=== PATIENT | male | born 1950 | race Caucasian/White ===

== ENCOUNTER 2016-07-19 09:33 | Day surgery (SDC) | payer MEDICARE ==
[2016-07-05 10:01] VITALS: BMI 32.7
[~2016-07-19 09:33] MED LIST: LACTATED RINGERS 1,000 ML IV SCH
[2016-07-19 10:13] VITALS: RESP 16; TEMP 97.9
[2016-07-19] MEDS ORDERED: LIDOCAINE 1% 20 ML VIAL (10MG/ML) FOR IV START INTRADERMA ONE (10:26)
[2016-07-19] MEDS ORDERED: PROPOFOL 10 MG/ML 20 ML VIAL IV ONE (11:04)
[2016-07-19] MEDS ORDERED: LIDOCAINE 1% INJ 10MG/ML (20 ML MDV) ONE (11:04)
--- NOTE | 2016-07-19 11:41 | P.PCN ---
Date of Procedure: 07/19/16 Procedure(s) Performed: Procedure: Colonoscopy and polypectomy. Preoperative diagnosis: Screening for neoplasia, patient has history of polyps. Postoperative diagnosis: 1. Sigmoid diverticulosis with no evidence of acute diverticulitis or strictures. 2. Multiple polyps snared, but no large polyps or cancer. Preparation: HalfLytely prep. Sedation: Was provided by anesthesia. Brief clinical history: The patient is a 65-year-old male who is scheduled for this evaluation because of history of polyps. His last exam was in May 2009. The patient has no abdominal complaints, bleeding or anemia. Procedure: With the patient on his left lateral decubitus position and after informed consent and adequate sedation, the perianal area was inspected and it did not show any fissures or fistulas. There were no masses felt on digital rectal examination. The Olympus CFQ 160L video colonoscope was then inserted in the rectum in the usual fashion and advanced to the cecum. There were multiple diverticular orifices seen scattered in the sigmoid and there were multiple small and medium-sized polyps that were snared in the sigmoid and around the hepatic flexure with no large polyps or cancer. I retroflexed the endoscope in the rectum before the endoscope was withdrawn. The patient tolerated the procedure well. Plan: The patient was reassured. Discussed dietary measures, and I recommended a repeat exam in 3 years. He will follow up with you as planned.
[2016-07-19 12:04] VITALS: BP 113/74; PULSE 70
== END 2016-07-19 12:13 | disposition home or self-care (01) ==
LOC: ORWHC2ENDO 09:33
DX: Z12.11 Encounter for screening for malignant neoplasm of colon (principal); D12.5 Benign neoplasm of sigmoid colon; Z86.010 Personal history of colon polyps; I10 Essential (primary) hypertension; E78.5 Hyperlipidemia, unspecified; G40.909 Epilepsy, unspecified, not intractable, without status epilepticus; K57.30 Diverticulosis of large intestine without perforation or abscess without bleeding; Z88.0 Allergy status to penicillin; Z88.8 Allergy status to other drugs, medicaments and biological substances; Z79.899 Other long term (current) drug therapy; Z86.718 Personal history of other venous thrombosis and embolism
CPT/HCPCS: 88305; 45385; J2001; J2704; 99153

== ENCOUNTER 2020-09-05 09:34 | Day surgery (SDC) | payer MEDICARE ==
[2020-08-31 15:35] VITALS: BMI 35.3
[2020-09-05 10:11] VITALS: RESP 16; TEMP 98.4
[2020-09-05] MEDS ORDERED: LIDOCAINE 1% (10MG/ML) FOR IV START INTRADERMA ONE (10:27)
[2020-09-05] MEDS ORDERED: PROPOFOL 10 MG/ML 20 ML VIAL IV ONE (10:42)
--- NOTE | 2020-09-05 11:35 | P.PCN ---
Date of Procedure: 09/05/20 Description of Procedure: BRIEF HISTORY: Patient is a 70-year-old male presented for outpatient colonoscopy for tubular adenoma/history of colon polyps. Last colonoscopy 5 years ago. Prior polypectomies on colonoscopy. Denies any change in bowel habits. No family history of colon cancer. PROCEDURE PERFORMED: Colonoscopy with polypectomy. PREOPERATIVE DIAGNOSIS: Tubular adenoma, personal history of colon polyps, last colonoscopy 5 years ago. ESTIMATED BLOOD LOSS: Minimal. IV sedation per Anesthesia. PROCEDURE: After informed consent was obtained, the patient, was brought into the endoscopy unit. IV sedation was administered by Anesthesia under continuous monitoring. Digital rectal examination was normal. Initially the Olympus CF-190 flexible video colonoscope was then inserted in the rectum, gradually advanced into the cecum without any difficulty. Careful examination was performed as the scope was gradually being withdrawn. Ileocecal valve and the appendiceal orifice were visualized and appeared normal. Prep was excellent. Mucosa of the cecum, ascending colon, transverse colon, descending colon, sigmoid colon, and rectum appeared normal. 6 sessile polyps measuring 3 mm in size up to 7 mm in size removed with cold snare polypectomy from the transverse colon, ascending colon, cecum, hepatic flexure, splenic flexure and descending colon. A few scattered diverticula noted in the left colon. Retroflexion was performed in the rectum and no lesions were seen. The patient tolerated the procedure well. IMPRESSION: 6 polyps removed with cold snare polypectomy from the cecum, ascending colon, transverse colon, hepatic flexure, splenic flexure and descending colon. Mild left colonic diverticulosis RECOMMENDATIONS: Findings of this examination were discussed with the patient and his family. Okay to resume diet. A prescription medications. Await pathology from polypectomy. Recommend repeat colonoscopy in 3 years for colon polyps pending pathology from polypectomy.
[2020-09-05 11:55] VITALS: BP 105/62; PULSE 76
== END 2020-09-05 12:18 | disposition home or self-care (01) ==
LOC: ORWHC2ENDO 09:34
PROVIDERS: ATTEND Internal Medicine
DX: K63.5 Polyp of colon (principal); D12.2 Benign neoplasm of ascending colon; D12.0 Benign neoplasm of cecum; D12.4 Benign neoplasm of descending colon; D12.3 Benign neoplasm of transverse colon; K57.30 Diverticulosis of large intestine without perforation or abscess without bleeding; I10 Essential (primary) hypertension; E78.5 Hyperlipidemia, unspecified; R56.9 Unspecified convulsions; Z86.010 Personal history of colon polyps; Z88.0 Allergy status to penicillin; Z88.8 Allergy status to other drugs, medicaments and biological substances; Z79.899 Other long term (current) drug therapy; Z90.49 Acquired absence of other specified parts of digestive tract; Z98.41 Cataract extraction status, right eye; Z98.42 Cataract extraction status, left eye; Z86.718 Personal history of other venous thrombosis and embolism
CPT/HCPCS: 88305; 45385; J2704

== ENCOUNTER 2023-12-24 09:54 | Day surgery (SDC) | payer MEDICARE ==
[2023-12-24] MEDS: IV FLUID CONTINUATION 1,000 ML IV ONE ×2 (10:40→12:27)
[2023-12-24] MEDS: LACTATED RINGERS 1,000 ML IV SCH (10:54)
[2023-12-24 10:59] VITALS: TEMP 97
[2023-12-24] MEDS ORDERED: PROPOFOL 10 MG/ML 20 ML VIAL IV ONE (12:28)
--- NOTE | 2023-12-24 13:02 | P.PCN ---
Date of Procedure: 12/24/23 Procedure(s) Performed: BRIEF HISTORY: Patient is a 73-year-old pleasant white male scheduled for an elective colonoscopy as a part of management by history of colon polyps r PROCEDURE PERFORMED: Colonoscopy with snare polypectomy, Endo Clip placement and tattooing with Lindsey ink. PREOPERATIVE DIAGNOSIS: History of colon polyps. IV sedation per Anesthesia. PROCEDURE: After informed consent was obtained, the patient, was brought into the endoscopy unit. IV sedation was administered by Anesthesia under continuous monitoring. Digital rectal examination was normal. Initially the Olympus CF-160 flexible video colonoscope was then inserted in the rectum, gradually advanced into the cecum without any difficulty. Careful examination was performed as the scope was gradually being withdrawn. Ileocecal valve and the appendiceal orifice were visualized and appeared normal. Prep was excellent. Mucosa of the cecum, ascending colon, appeared normal. The hepatic flexure there was a 4 cm broad- based polyp that was removed by piecemeal snare polypectomy and almost complete polypectomy of accomplished. Following the polypectomy 2 endoclips were placed to prevent post polypectomy bleed. Tattooing was performed with Lindsey ink. Transverse colon, descending colon, sigmoid colon, and rectum appeared normal. Retroflexion was performed in the rectum and no lesions were seen. Scattered sigmoid diverticulosis. The patient tolerated the procedure well. IMPRESSION: 4 cm broad-based hepatic flexure polyp status post piecemeal snare polypectomy followed by Endo Clip placement and tattooing with Lindsey ink and almost complete polypectomy accomplished Scattered sigmoid diverticulosis RECOMMENDATIONS: Findings of this examination were discussed with the patient as well as his family. He was advised to have the biopsy results. He will be seen in the office in 2 weeks. If the biopsy reveals adenoma we will plan a repeat colonoscopy in 3 months to ensure complete polypectomy..
[2023-12-24 13:52] VITALS: BP 102/65; PULSE 76; RESP 18
== END 2023-12-24 13:56 | disposition home or self-care (01) ==
LOC: ORWHC2ENDO 09:54
PROVIDERS: ATTEND Internal Medicine Gastroenterology
DX: Z12.11 Encounter for screening for malignant neoplasm of colon (principal); K57.30 Diverticulosis of large intestine without perforation or abscess without bleeding; D12.3 Benign neoplasm of transverse colon; I10 Essential (primary) hypertension; E78.5 Hyperlipidemia, unspecified; G40.909 Epilepsy, unspecified, not intractable, without status epilepticus; Z86.010 Personal history of colon polyps; Z79.899 Other long term (current) drug therapy; Z88.0 Allergy status to penicillin; Z88.1 Allergy status to other antibiotic agents; Z88.8 Allergy status to other drugs, medicaments and biological substances; Z87.442 Personal history of urinary calculi
CPT/HCPCS: 88305; 45385; 45381; J2704

== ENCOUNTER → 2024-06-23 | Day surgery (SDC) | payer MEDICARE ==
[~2024-06-23] MED LIST changes: +LIDOCAINE 1% (10MG/ML) FOR IV START INTRADERMA PRN; +LIDOCAINE 1% INJ 10MG/ML (20 ML MDV) ONE; +PROPOFOL 10 MG/ML 20 ML VIAL IV ONE
[2024-06-23] MEDS: SODIUM CHLORIDE 0.9% 1,000 ML IV ONE (08:05)
[2024-06-23 08:18] VITALS: TEMP 97.3
--- NOTE | 2024-06-23 08:57 | P.PCN ---
Date of Procedure: 06/23/24 Procedure(s) Performed: BRIEF HISTORY: Patient is a 73-year-old pleasant white male scheduled for an elective colonoscopy as a part of follow-up of large hepatic flexure polyp that was noted on colonoscopy December 2023. He was noted to have a 4 cm hepatic flexure polyp that was removed by piecemeal snare polypectomy biopsies revealed adenoma. He is scheduled for a follow-up colonoscopy in 6 months PROCEDURE PERFORMED: Colonoscopy with biopsy and snare polypectomy. PREOPERATIVE DIAGNOSIS: Follow-up large hepatic lecture polyp. IV sedation per Anesthesia. PROCEDURE: After informed consent was obtained, the patient, was brought into the endoscopy unit. IV sedation was administered by Anesthesia under continuous monitoring. Digital rectal examination was normal. Initially the Olympus CF-160 flexible video colonoscope was then inserted in the rectum, gradually advanced into the cecum without any difficulty. Careful examination was performed as the scope was gradually being withdrawn. Ileocecal valve and the appendiceal orifice were visualized and appeared normal. Prep was excellent. Mucosa of the cecum, ascending colon, normal. In the hepatic flexure at the site of previous polypectomy that was Endo Clip still in place. There was a residual 5 mm polyp noted at the base by Endo Clip which was removed by cold biopsy. In the transverse colon there was a 1 cm polyp removed by hot snare polypectomy. In the descending colon there was a 3 mm polyp that was removed by cold biopsy. Re st of transverse colon, descending colon, sigmoid colon, and rectum appeared normal. Retroflexion was performed in the rectum and no lesions were seen. The patient tolerated the procedure well. IMPRESSION: 5 mm residual polyp noted at the site of previous polypectomy and hepatic flexure. Endo Clip was still in place. Biopsies were done of the cecal polyp. 1 cm transverse colon polyp status post snare polypectomy 3 mm ascending colon polyp status post cold biopsy RECOMMENDATIONS: Findings of this examination were discussed with the patient as well as his family. He was advised to follow-up with the biopsy results.. Based on the biopsy results recommend repeat colonoscopy in 1 year
[2024-06-23 09:17] VITALS: BP 100/63; PULSE 80; RESP 18
== END ==
LOC: ORWHC2ENDO 07:44
PROVIDERS: ATTEND Internal Medicine Gastroenterology
DX: D12.4 Benign neoplasm of descending colon (principal); D12.3 Benign neoplasm of transverse colon; I10 Essential (primary) hypertension; E78.5 Hyperlipidemia, unspecified; G40.909 Epilepsy, unspecified, not intractable, without status epilepticus; M19.90 Unspecified osteoarthritis, unspecified site; H57.9 Unspecified disorder of eye and adnexa; Z79.899 Other long term (current) drug therapy; Z86.718 Personal history of other venous thrombosis and embolism; Z88.0 Allergy status to penicillin; Z88.8 Allergy status to other drugs, medicaments and biological substances; Z86.0100 Personal history of colon polyps, unspecified
CPT/HCPCS: 88305; 45380; 45385; J2003; J2704